=== PATIENT | female | born 1950 | race Caucasian/White ===

== ENCOUNTER → 2018-07-11 08:06 | Outpatient (CLI) | payer MEDICARE, OTHER, SELFPAY ==
--- NOTE | 2018-07-11 | DI.MG.S_ITS ---
BILATERAL DIGITAL SCREENING MAMMOGRAM 3D/2D WITH CAD: 07/11/2018 CLINICAL: Routine screening. Routine screening. Family history of breast cancer. Comparison is made to exams dated: 06/20/2017 mammogram, 06/13/2017 mammogram, and 06/04/2016 mammogram - [facility]. There are scattered fibroglandular elements in both breasts. Current study was also evaluated with a Computer Aided Detection (CAD) system. There are a grouped fine punctate calcifications in the left breast at 12 o'clock middle depth. No other significant masses, calcifications, or other findings are seen in either breast. IMPRESSION: INCOMPLETE: NEEDS ADDITIONAL IMAGING EVALUATION The grouped fine punctate calcifications in the left breast are indeterminate. Mediolateral, spot magnification, and additional views are recommended. This exam was interpreted at Station ID: [id number]. NOTE: For mammograms, a report in lay terms will be sent to the patient. Approximately 15% of breast malignancies will not be visualized mammographically. In the management of a palpable breast mass, a negative mammogram must not discourage biopsy of a clinically suspicious lesion. Electronically Signed By: Amador rico/abena:07/11/2018 15:27:46 letter sent: Additional Imaging Needed ACR BI-RADS Category 0: Incomplete 3340F
== END ==
PROVIDERS: Visit Provider Physician Assistant
DX: Z12.31 Encounter for screening mammogram for malignant neoplasm of breast (principal); Z80.3 Family history of malignant neoplasm of breast
CPT/HCPCS: 77063; 77067

== ENCOUNTER → 2018-08-06 13:02 | Outpatient (CLI) | payer MEDICARE, OTHER, SELFPAY ==
--- NOTE | 2018-08-06 | DI.MG.S_ITS ---
UNILATERAL LEFT DIGITAL DIAGNOSTIC MAMMOGRAM 3D/2D WITH ADDITIONAL VIEWS: 08/06/2018 CLINICAL: Additional evaluation requested from prior study. Comparison is made to exams dated: 07/11/2018 mammogram - [facility], 06/27/2017 stereotactic biopsy, and 06/20/2017 mammogram - [facility]. There are scattered fibroglandular elements in left breast. There are a grouped fine pleomorphic punctate calcifications in the left breast at 12 o'clock middle depth. These are increased in number of calcifications. No other significant masses or calcifications are seen in the breast. IMPRESSION: SUSPICIOUS OF MALIGNANCY The grouped fine pleomorphic punctate calcifications in the left breast are at a low suspicion for malignancy. A stereotactic biopsy is recommended. The findings were discussed with the patient at the conclusion of the study by Dr. Becerril. This exam was interpreted at Station ID: [id number]. NOTE: For mammograms, a report in lay terms will be sent to the patient. Approximately 15% of breast malignancies will not be visualized mammographically. In the management of a palpable breast mass, a negative mammogram must not discourage biopsy of a clinically suspicious lesion. Electronically Signed By: Amador rico/:08/06/2018 13:52:44 letter sent: Biopsy Required ACR BI-RADS Category 4a: Suspicious abnormality - low suspicion for malignancy 3344F
== END ==
PROVIDERS: PCP Physician Assistant; Visit Provider Physician Assistant
DX: R92.1 Mammographic calcification found on diagnostic imaging of breast (principal)
CPT/HCPCS: 77065; G0279

== ENCOUNTER 2018-10-29 07:37 | Day surgery (SDC) | payer MEDICARE, OTHER, SELFPAY ==
[2018-10-29] VITALS (8 sets, daily range): BP systolic 108–159; BP diastolic 49–87; PULSE 75–95; RESP 10–16; TEMP 36.3–36.7; O2SAT 95–100
--- NOTE | 2018-10-29 | PATH_ITS ---
[facility] Accession Number: [id number] . 01 Material submitted: . LEFT BREAST TISSUE . 01 Diagnosis: Left Breast Tissue, Excision: Focal atypical lobular hyperplasia associated with microcalcifications. Small focus of intraductal papilloma (<0.1 cm) adjacent to biopsy site. Microcalcifications and coarse stromal calcifications are also present in association with benign breast tissue. Background breast with fibrocystic change including usual ductal hyperplasia, adenosis, columnar cell change, cystic apocrine metaplasia, and microcysts. Negative for carcinoma in situ and malignancy. /11/02/2018 . 01 Electronically signed: . Susan Ch MD, Pathologist NPI- [id number] . 01 Gross description: . Received in formalin, labeled left breast tissue, short superior, long lateral, wire anterior. Specimen: Left partial mastectomy. Weight: 32 grams. Measurement: 9.3 cm anterior to posterior, 1.5 cm medial to lateral, and 2.0 cm-5.5 cm superior to inferior. Skin Ellipse: Absent. Wire: One wire penetrates at the superior lateral anterior side and exits the central inferolateral side. Margins: Oriented with short superior suture, long lateral suture, anterior localization wire, and inked as follows: posterior=black; anterior=purple; superior=blue; inferior=green; medial=yellow; lateral=orange. Sliced: Anterior to posterior into 27 slices. Lesions: No distinct nodules, masses, or lesions are identified. Other: The remaining cut surfaces consists of yellow lobulated adipose tissue and focally fibrous areas. A cavity (0.5 x 0.4 x 0.4 cm) is identified within slices #22-23 located 0.2 cm from the medial resection margin. Fixation Time: The specimen was placed in formalin on 10/29/2018 with no time given. An approximate total fixation time is calculated at 31 hours and 30 minutes. Sections: A1: Slice 1, anterior end of specimen, perpendicular. A2: Slice 2, bisected. A3: Slice 3, bisected. A4: Bisected. A5-A6: Slice 5, bisected and submitted superior to inferior. A7-A8: Slice 6, bisected and submitted superior to inferior, fibrous area in cassette A7. A9-A10: Slice 7, bisected and submitted superior to inferior. A11: Slice 8, bisected, focally firm area. A12: Slice 9, bisected, focally firm area. A13: Slice 10, bisected, focally firm area. A14: Slice 11, bisected. A15: Slice 12, trisected. A16: Slice 13, trisected, focally firm area. A17: Slice 14. A18: Slice 15, multiple pieces upon slicing. A19: Slice 16. A20: Slice 17. A21: Slice 18. A22: Slice 19, focally firm area. A23: Slice 20. A24: Slice 21. A25: Slice 22, anterior half of the cavity. A26: Slice 23, posterior half of the cavity. A27: Slice 24. A28: Slice 25. A29: Slice 26. A30: Slice 27, posterior end of specimen, perpendicular. Specimen is entirely submitted. Note: This specimen has been reviewed by Dr. Glendy Ch. ([id number]) /[facility] . 01 Microscopic: . Focal atypical lobular hyperplasia is present in 3 separate slices (slices 3, 6, and 22) with associated microcalcifications. The specimen is entirely submitted. . 01 Pathologist provided ICD-10: N60.92 . 01 CPT . 704005 Performed at: [address] [facility], [place], [place] [id number] MD Amador Lucas MD Phone: [phone]
--- NOTE | 2018-10-29 | DI.MG.S_ITS ---
SPECIMEN: 10/29/2018 CLINICAL: Left breast calcifications. Correlation is made to exams dated: 08/21/2018 specimen - [facility], 08/06/2018 mammogram, 10/29/2018 localization - [facility], 08/21/2018 stereotactic biopsy - [facility], and 07/11/2018 mammogram - [facility]. The specimen contains the targeted ribbon shaped biopsy clip and calcifications, as well as the localizing wire. IMPRESSION: SPECIMEN The specimen contains the targeted ribbon shaped biopsy clip and calcifications, as well as the localizing wire. This exam was interpreted at Station ID: [id number]. Chas Powers M.D. ecl/:10/29/2018 10:30:06
--- NOTE | 2018-10-29 09:13 | SUR.PREOP ---
pt returned from radiology via wheelchair. pt transferred self to use the restroom without any difficultly. pt then transferred herself back into bed. bed in lowest position and call light given to pt. pt at bedside.
--- NOTE | 2018-10-29 09:30 | DI.MG.S_ITS ---
DIGITAL MAMMOGRAPHY GUIDED WIRE LOCALIZATION LEFT BREAST WITH POST DIGITAL MAMMOGRAPHIC IMAGIN10/29/2018 CLINICAL: Left breast calcifications. Correlation is made to exams dated: 08/21/2018 stereotactic biopsy - [facility], 08/06/2018 mammogram, 07/11/2018 mammogram - [facility], 08/21/2018 specimen, 06/27/2017 stereotactic biopsy, and 06/27/2017 specimen - [facility]. A wire localization using digital mammography guidance was performed for the ribbon shaped marker clip and residual calcifications located in the left breast at 12 o'clock middle depth. The skin was prepped in the usual manner. 5 mL of 1% lidocaine was used for local anesthesia. The localization was approached from the craniocaudal aspect. A 5 cm Kopans hook wire was inserted adjacent to the marker under digital mammography guidance. A skin adhesive was applied to the access site. Post placement digital mammographic imaging was obtained and demonstrates the ribbon shaped marker clip and residual calcifications immediately anteriorly adjacent to the proximal stiffener of the Kopans wire, approximately 2.0 cm deep to the skin entry and 3.0 cm superficial to the tip of the wire hook. IMPRESSION: WIRE LOCALIZATION Wire localization for the marker clip in the left breast at 12 o'clock middle depth was successful with no apparent post procedure complications. This exam was interpreted at Station ID: [id number]. Chas Powers M.D. ecl/:10/31/2018 12:40:01
[2018-10-29] MEDS: CEFAZOLIN 2 GM/100 ML FROZ.PIGGY IV (09:40)
[2018-10-29] MEDS: LACTATED RINGERS 1,000 ML 42 ML IV (09:42)
[2018-10-29] MEDS: BUPIVACAINE 0.5% (PF) VIAL 20 ML INJ (10:14)
[2018-10-29] MEDS: LIDOCAINE 1% W/EPI INJ 20 ML INJ (10:15)
--- NOTE | 2018-10-29 10:41 | PM.PREOP ---
Pre-operative Note Interval Note History & Physical reviewed/Exam performed by Physician: Yes Changes to H&P: No
--- NOTE | 2018-10-29 10:42 | PM.OP.1 ---
Operative Date/Time/Diagnoses Date of procedure: 10/29/18 Time of procedure: 10:42 Pre-op diagnosis: Left Breast Intraductal Papilloma Post-op diagnosis: same Procedure & Clinicians Procedure: Left Breast Lumpectomy after Needle Localization Same procedure as scheduled: Yes Surgeon: Paulette Grande Click Yes if Unassisted: Yes Anesthesia Type: General (Dr. Storm) and Local Operative Notes Findings: Clip, wire, and calcifications all contained within specimen Closure Type: primary Specimen(s): other (Specimen was marked for orientation and submitted in formalin) Estimated Blood Loss (mL): 20 Procedure in detail: After obtaining informed consent, the patient brought to the operating room and placed in the supine position on the operating table. Following successful induction of general endotracheal anesthesia, appropriate padding of all bony prominences, and placement of appropriate monitors, the left breast is prepped and draped in the standard surgical fashion. A time-out was held per SCOAP protocol. Following infiltration with local anesthetic to create a field block, an incision was created at the superior aspect of the left areola. This was carried down through the skin and subcutaneous tissue. Dissection was carried out superiorly to the level of the localizing wire and slightly beyond. The entire wire and mass was liberated sharply using curved Riley scissors. This was marked for orientation and passed from the table. It was submitted to Radiology. The wound was then checked for hemostasis. It was irrigated with warm saline solution. The radiologist called back into the room and reported that the specimen contained all of the desired elements. The wound was then closed in 2 layers of Vicryl Monocryl sutures. Dermabond was applied to the skin. All sponge, needle, and instrument counts were correct at the conclusion of the case. The patient allowed to wake from anesthesia without difficulty and taken to the post anesthesia care unit in good condition. Complications: none Condition: stable Disposition: PACU Plan for aftercare: 1. Discharge to home 2. Follow up with me in my office in 2 weeks
[2018-10-29] MEDS: HYDROCODONE/ACET 5/325 TABLET 1 TAB PO (11:02)
--- NOTE | 2018-10-29 11:32 | SUR.PHASEII ---
pt arrived to phase II via stretcher. Pt sitting up and sipping ice water. Pt brought to bedside. Incision site observed to be c/d/i. breast binder in place. pt states pain is 3/10 at this time and tolerable. pt denies any nausea. bed in lowest position and call light given to pt.
== END 2018-10-29 11:52 | disposition home or self-care (01) ==
PROVIDERS: PCP Physician Assistant; Visit Provider Surgery
PROC: (CPT 19301; principal; 2018-10-29 09:30)
DX: N60.92 Unspecified benign mammary dysplasia of left breast (principal); E03.9 Hypothyroidism, unspecified
CPT/HCPCS: 19301; 19281; 76098; 88307; J0690; J1100; J2405; J2704; J3010

== ENCOUNTER → 2019-03-18 14:34 | Outpatient (CLI) | payer MEDICARE, OTHER, SELFPAY | PROVIDERS: PCP Physician Assistant; Visit Provider Student in an Organized Health Care Education/Training Program | DX: M85.851 Other specified disorders of bone density and structure, right thigh (principal); Z78.0 Asymptomatic menopausal state; R29.890 Loss of height; Z82.62 Family history of osteoporosis | CPT/HCPCS: 77080 ==

== ENCOUNTER → 2019-06-30 15:20 | Outpatient (ROUT) | payer MEDICARE, OTHER, SELFPAY ==
[2019-06-30 16:00] LABS: Blood Urea Nitrogen 17 mg/dL (7-17); Calcium 10.4 mg/dL (8.4-10.2); Carbon Dioxide 27 mmol/L (22-32); Chloride 102 mmol/L (98-107); Cholesterol 194 mg/dL (140-199); Glucose 96 mg/dL (80-110); HDL Cholesterol 54 mg/dL (40-60); HEMOLYSIS < 15 (0-50); LDL Cholesterol Calculated 118 mg/dL (<100); Potassium 4.8 mmol/L (3.4-5.1); Sodium 138 mmol/L (137-145); Triglycerides 112 mg/dL (35-150)
[2019-06-30 16:28] LABS: TSH w/ Reflex to FT4 1.83 uIU/mL (0.47-4.68)
== END ==
PROVIDERS: PCP Physician Assistant; Visit Provider Internal Medicine
DX: I10 Essential (primary) hypertension (principal); E78.2 Mixed hyperlipidemia; E03.9 Hypothyroidism, unspecified
CPT/HCPCS: 80048; 80061; 84443

== ENCOUNTER → 2019-07-13 10:56 | Outpatient (CLI) | payer MEDICARE, OTHER, SELFPAY ==
--- NOTE | 2019-07-13 | DI.MG.S_ITS ---
BILATERAL DIGITAL SCREENING MAMMOGRAM 3D/2D WITH CAD: 07/13/2019 CLINICAL: Routine screening. Family history of breast cancer. Comparison is made to exams dated: 08/06/2018 mammogram, 07/11/2018 mammogram - [facility], 06/20/2017 mammogram, and 06/13/2017 mammogram - [facility]. There are scattered fibroglandular elements in both breasts. Current study was also evaluated with a Computer Aided Detection (CAD) system. There are benign post operative findings in the left breast. No significant masses, calcifications, or other findings are seen in either breast. There has been no significant interval change. IMPRESSION: There is no mammographic evidence of malignancy. A 1 year screening mammogram is recommended. This exam was interpreted at Station ID: [id number]. NOTE: For mammograms, a report in lay terms will be sent to the patient. Approximately 15% of breast malignancies will not be visualized mammographically. In the management of a palpable breast mass, a negative mammogram must not discourage biopsy of a clinically suspicious lesion. Electronically Signed By: Amador rico/abena:07/17/2019 07:09:20 copy to: Micki Antony letter sent: Normal Exam ACR BI-RADS Category 2: Benign Finding(s) 3342F
== END ==
PROVIDERS: Family Provider Internal Medicine; PCP Internal Medicine; Visit Provider Physician Assistant
DX: Z12.31 Encounter for screening mammogram for malignant neoplasm of breast (principal); Z80.3 Family history of malignant neoplasm of breast
CPT/HCPCS: 77063; 77067

== ENCOUNTER → 2019-09-22 15:37 | Outpatient (ROUT) | payer MEDICARE, OTHER, SELFPAY ==
[2019-09-22 17:08] LABS: Cholesterol 193 mg/dL (140-199); HDL Cholesterol 59 mg/dL (40-60); LDL Cholesterol Calculated 117 mg/dL (<100); Triglycerides 85 mg/dL (35-150)
[2019-09-22 17:38] LABS: TSH w/ Reflex to FT4 1.15 uIU/mL (0.47-4.68)
== END ==
PROVIDERS: Family Provider Internal Medicine; PCP Internal Medicine; Visit Provider Internal Medicine
DX: E78.5 Hyperlipidemia, unspecified (principal); E03.9 Hypothyroidism, unspecified
CPT/HCPCS: 80061; 84443

== ENCOUNTER → 2021-06-23 13:14 | Outpatient (CLI) | payer MEDICARE, OTHER, SELFPAY ==
--- NOTE | 2021-06-23 | DI.MG.S_ITS ---
BILATERAL DIGITAL SCREENING MAMMOGRAM 3D/2D WITH CAD: 06/23/2021 CLINICAL: Routine screening. Family history of breast cancer. Comparison is made to exams dated: 07/13/2019 mammogram, 07/11/2018 mammogram - [facility], and 06/13/2017 mammogram - [facility]. There are scattered fibroglandular elements in both breasts. Current study was also evaluated with a Computer Aided Detection (CAD) system. There are benign calcifications in both breasts. There also are benign post operative findings in the left breast. No significant masses, calcifications, or other findings are seen in either breast. There has been no significant interval change. IMPRESSION: BENIGN There is no mammographic evidence of malignancy. A 1 year screening mammogram is recommended. This exam was interpreted at Station ID: [id number]. NOTE: For mammograms, a report in lay terms will be sent to the patient. Approximately 15% of breast malignancies will not be visualized mammographically. In the management of a palpable breast mass, a negative mammogram must not discourage biopsy of a clinically suspicious lesion. Electronically Signed By: Gian Nuno acr/penrad:06/23/2021 13:42:49 copy to: Micki Antony letter sent: Normal Exam ACR BI-RADS Category 2: Benign Finding(s) 3342F
== END ==
PROVIDERS: Family Provider Internal Medicine; PCP Internal Medicine; Referring Provider Internal Medicine; Visit Provider Internal Medicine
DX: Z12.31 Encounter for screening mammogram for malignant neoplasm of breast (principal); Z80.3 Family history of malignant neoplasm of breast
CPT/HCPCS: 77063; 77067

== ENCOUNTER → 2022-06-25 13:53 | Outpatient (CLI) | payer MEDICARE, OTHER, SELFPAY ==
--- NOTE | 2022-06-25 | DI.MG.S_ITS ---
BILATERAL DIGITAL SCREENING MAMMOGRAM 3D/2D WITH CAD: 06/25/2022 CLINICAL: Routine screening. Family history of breast cancer. Comparison is made to exams dated: 06/23/2021 mammogram, 07/13/2019 mammogram, and 07/11/2018 mammogram - [facility]. There are scattered areas of fibroglandular density in both breasts (category b / 25%-50% glandular tissue). Current study was also evaluated with a Computer Aided Detection (CAD) system. Redemonstration of previously described benign appearing calcifications in both breasts. The left breast has stable post-operative findings. There are grouped heterogeneous calcifications in the left breast at 1 o'clock posterior depth. These are more prominent, increased in number, and increased in number of calcifications. No other significant masses, calcifications, or other findings are seen in either breast. IMPRESSION: INCOMPLETE: NEEDS ADDITIONAL IMAGING EVALUATION The grouped heterogeneous calcifications in the left breast upper outer quadrant posterior depth have increased in size, number, and conspicuity and are indeterminate. Diagnostic mammogram for additional views to include mediolateral and spot magnification views is recommended. Based on the Tyrer Cuzick model (a risk assessment model) the patient's lifetime risk is 14.4% and her 10 year risk is 10.9%. According to the ACR, ACS, and NCCN guidelines, an annual breast MRI exam along with mammogram is recommended if the patient's lifetime risk is 20% or greater. This exam was interpreted at Station ID: [id number]. NOTE: For mammograms, a report in lay terms will be sent to the patient. Approximately 15% of breast malignancies will not be visualized mammographically. In the management of a palpable breast mass, a negative mammogram must not discourage biopsy of a clinically suspicious lesion. Electronically Signed By: Gautam Worley M.D. aty/:06/25/2022 16:24:53 copy to: Micki Antony letter sent: Additional Imaging Needed ACR BI-RADS Category 0: Incomplete 3340F
== END ==
PROVIDERS: PCP Internal Medicine; Referring Provider Internal Medicine; Visit Provider Internal Medicine
DX: Z12.31 Encounter for screening mammogram for malignant neoplasm of breast (principal); Z80.3 Family history of malignant neoplasm of breast
CPT/HCPCS: 77063; 77067

== ENCOUNTER → 2022-08-10 11:08 | Outpatient (CLI) | payer MEDICARE, OTHER, SELFPAY ==
--- NOTE | 2022-08-10 11:09 | DI.MG.S_ITS ---
UNILATERAL LEFT DIGITAL DIAGNOSTIC MAMMOGRAM 3D/2D WITH ADDITIONAL VIEWS: 08/10/2022 CLINICAL: Patient returns for magnification views of microcalcifications in the left breast. Comparison is made to exams dated: 06/25/2022 mammogram, 06/23/2021 mammogram, and 07/13/2019 mammogram - [facility]. There are scattered areas of fibroglandular density in the left breast (category b / 25%-50% glandular tissue). The left breast has post-operative findings of prior excisional biopsy. There are grouped and linear arranged, amorphous and heterogeneous calcifications in the left breast at 3 o'clock posterior depth. These are more prominent, and increased in number over prior studies. Morphology is similar to previously excised calcifications. No other significant masses or calcifications are seen in the breast. IMPRESSION: SUSPICIOUS OF MALIGNANCY The 3:00 grouped calcifications in the left breast are suspicious of malignancy. A stereotactic biopsy is recommended. Findings and recommendations were discussed with the patient by Dr. Joey Watts in person at time of exam. Based on the Tyrer Cuzick model (a risk assessment model) the patient's lifetime risk is 13.6% and her 10 year risk is 11.2%. According to the ACR, ACS, and NCCN guidelines, an annual breast MRI exam along with mammogram is recommended if the patient's lifetime risk is 20% or greater. This exam was interpreted at Station ID: [id number]. NOTE: For mammograms, a report in lay terms will be sent to the patient. Approximately 15% of breast malignancies will not be visualized mammographically. In the management of a palpable breast mass, a negative mammogram must not discourage biopsy of a clinically suspicious lesion. Electronically Signed By: Roopa marquez/:08/10/2022 12:09:10 copy to: Micki Antony letter sent: Biopsy Required ACR BI-RADS Category 4: Suspicious abnormality 3344F
== END ==
PROVIDERS: PCP Internal Medicine; Referring Provider Internal Medicine; Visit Provider Internal Medicine
DX: R92.8 Other abnormal and inconclusive findings on diagnostic imaging of breast (principal); M85.852 Other specified disorders of bone density and structure, left thigh; R92.1 Mammographic calcification found on diagnostic imaging of breast; Z13.820 Encounter for screening for osteoporosis; Z78.0 Asymptomatic menopausal state
CPT/HCPCS: 77065; 77080; G0279

== ENCOUNTER → 2023-03-22 10:10 | Outpatient (CLI) | payer MEDICARE, OTHER, SELFPAY ==
--- NOTE | 2023-03-22 10:14 | DI.MG.S_ITS ---
UNILATERAL LEFT DIGITAL DIAGNOSTIC MAMMOGRAM 3D/2D: 03/22/2023 CLINICAL: 6 month post biopsy left. Comparison is made to exams dated: 08/10/2022 mammogram, 06/23/2021 mammogram, 06/25/2022 mammogram - [facility], and 08/21/2022 stereotactic biopsy - [facility]. There are scattered areas of fibroglandular density in the left breast (category b / 25%-50% glandular tissue). There are stable benign post operative changes in the left breast. There also is a benign biopsy clip in the left breast. No significant masses, calcifications, or other findings are seen in the breast. IMPRESSION: BENIGN There is no mammographic evidence of malignancy. Return to annual mammogram screening schedule is recommended. Based on the Tyrer Cuzick model (a risk assessment model) the patient's lifetime risk is 18.7% and her 10 year risk is 15.6%. According to the ACR, ACS, and NCCN guidelines, an annual breast MRI exam along with mammogram is recommended if the patient's lifetime risk is 20% or greater. This exam was interpreted at Station ID: [id number]. NOTE: For mammograms, a report in lay terms will be sent to the patient. Approximately 15% of breast malignancies will not be visualized mammographically. In the management of a palpable breast mass, a negative mammogram must not discourage biopsy of a clinically suspicious lesion. Electronically Signed By: Joey fitzpatrick/abena:03/22/2023 13:31:50 copy to: Micki Antony letter sent: Normal Exam ACR BI-RADS Category 2: Benign Finding(s) 3342F
== END ==
PROVIDERS: PCP Internal Medicine; Referring Provider Internal Medicine; Visit Provider Internal Medicine
DX: R92.8 Other abnormal and inconclusive findings on diagnostic imaging of breast (principal)
CPT/HCPCS: 77065; G0279

== ENCOUNTER → 2023-06-26 11:57 | Outpatient (CLI) | payer MEDICARE, OTHER, SELFPAY ==
--- NOTE | 2023-06-26 11:58 | DI.MG.S_ITS ---
BILATERAL DIGITAL SCREENING MAMMOGRAM 3D/2D WITH CAD: 06/26/2023 CLINICAL: Routine screening. Family history of breast cancer. Comparison is made to exams dated: 06/25/2022 mammogram, 06/23/2021 mammogram, 07/13/2019 mammogram, 03/22/2023 mammogram, and 08/10/2022 mammogram - [facility]. There are scattered areas of fibroglandular density in both breasts (category b / 25%-50% glandular tissue). Current study was also evaluated with a Computer Aided Detection (CAD) system. There are benign calcifications in both breasts. There also are benign post operative findings and biopsy clips in the left breast. No significant masses, calcifications, or other findings are seen in either breast. There has been no significant interval change. IMPRESSION: BENIGN There is no mammographic evidence of malignancy. A 1 year screening mammogram is recommended. Based on the Tyrer Cuzick model (a risk assessment model) the patient's lifetime risk is 18.7% and her 10 year risk is 15.6%. According to the ACR, ACS, and NCCN guidelines, an annual breast MRI exam along with mammogram is recommended if the patient's lifetime risk is 20% or greater. This exam was interpreted at Station ID: [id number]. NOTE: For mammograms, a report in lay terms will be sent to the patient. Approximately 15% of breast malignancies will not be visualized mammographically. In the management of a palpable breast mass, a negative mammogram must not discourage biopsy of a clinically suspicious lesion. Electronically Signed By: Joey fitzpatrick/abena:06/27/2023 09:02:34 copy to: Micki Antony letter sent: Normal Exam ACR BI-RADS Category 2: Benign Finding(s) 3342F
== END ==
PROVIDERS: PCP Internal Medicine; Referring Provider Internal Medicine; Visit Provider Internal Medicine
DX: Z12.31 Encounter for screening mammogram for malignant neoplasm of breast (principal); Z80.3 Family history of malignant neoplasm of breast
CPT/HCPCS: 77063; 77067

== ENCOUNTER → 2023-08-09 16:59 | Outpatient (CLI) | payer MEDICARE, OTHER, SELFPAY ==
--- NOTE | 2023-08-09 | DI.MRI.S_ITS ---
PROCEDURE: MR KNEE LT WO/W CON INDICATIONS: Localized swelling, mass and lump, left lower limb TECHNIQUE: Noncontrast sagittal PD fast spin echo and T2 fast spin echo with fat saturation, sagittal 3-D FLASH with fat saturation; coronal T1 spin echo and PD fast spin echo with fat saturation, and axial T1 spin echo and PD fast spin echo with fat saturation through the knee. Post-contrast axial, coronal, and sagittal T1 spin echo with fat saturation through the knee. COMPARISON: [facility] [place], CR, XR KNEE 4+ VIEWS LEFT, 07/03/2023, 14:07. FINDINGS: Image quality: Excellent. Menisci: There is horizontal tear of the body and posterior horn of the medial meniscus involving the anterior articular surface. The lateral meniscus demonstrates normal morphology and internal signal. The meniscal root ligaments appear intact. Cruciate ligaments: The anterior and posterior cruciate ligaments appear intact. Medial structures: The medial collateral ligament appears intact. The semimembranosus tendon insertions and meniscocapsular junction appear intact. Visualized portions of the pes anserinus tendons appear normal. No abnormal bursal fluid. Lateral structures: The lateral collateral ligament, long and short heads of the biceps femoris tendon appear intact. The popliteus tendon appears normal. Iliotibial band appears normal. Anterior structures: The quadriceps and patellar tendons appear intact. There is low-grade quadriceps tendinitis and patellar tendinitis. Patellar alignment is normal. No femoral trochlear dysplasia or ventral trochlear prominence. No edema in the infrapatellar fat pad. There is small amount of fluid in the prepatellar bursa consistent with mild bursitis. Bones and cartilage: No suspicious osseous enhancement. Shul-[id number] tricompartmental cartilage thinning and fibrillation. Joint space: There is small knee joint effusion. No Delgado's cyst. Normal appearing synovial plicae are incidentally noted. No suspicious soft tissue enhancement. IMPRESSION: 1. Horizontal tear of the posterior horn and body of the medial meniscus. 2. Low-grade quadriceps tendinitis and patellar tendinitis. 3. Yswm-ck-evawymji tricompartmental cartilage thinning and fibrillation. 4. Small prepatellar bursal fluid consistent with mild bursitis. 5. No mass is present in the area of interest. Dictated by: Dania Alcantar M.D. on 08/12/2023 at 9:46 Approved by: Dania Alcantar M.D. on 08/12/2023 at 11:23
== END ==
PROVIDERS: PCP Internal Medicine; Referring Provider Orthopaedic Surgery Foot and Ankle Surgery; Visit Provider Orthopaedic Surgery Foot and Ankle Surgery
DX: S83.242A Other tear of medial meniscus, current injury, left knee, initial encounter (principal); R22.42 Localized swelling, mass and lump, left lower limb; M76.52 Patellar tendinitis, left knee
CPT/HCPCS: 73723; A9579

== ENCOUNTER → 2024-07-06 09:55 | Outpatient (CLI) | payer MEDICARE, OTHER, SELFPAY ==
--- NOTE | 2024-07-06 09:56 | DI.MG.S_ITS ---
BILATERAL DIGITAL SCREENING MAMMOGRAM 3D/2D WITH CAD: 07/06/2024 CLINICAL: Routine screening. Family history of breast cancer. Comparison is made to exams dated: 06/26/2023 mammogram, 03/22/2023 mammogram, 08/10/2022 mammogram, 06/25/2022 mammogram, and 06/23/2021 mammogram - [facility]. There are scattered areas of fibroglandular density (category b / 25%-50% glandular tissue). Current study was also evaluated with a Computer Aided Detection (CAD) system. There are benign calcifications in both breasts. There also are benign post operative findings and biopsy clips in the left breast. No significant masses, calcifications, or other findings are seen in either breast. There has been no significant interval change. IMPRESSION: BENIGN There is no mammographic evidence of malignancy. A 1 year screening mammogram is recommended. Based on the Tyrer Cuzick model (a risk assessment model) the patient's lifetime risk is 16.5% and her 10 year risk is 16.5%. According to the ACR, ACS, and NCCN guidelines, an annual breast MRI exam along with mammogram is recommended if the patient's lifetime risk is 20% or greater. This exam was interpreted at Station ID: [id number]. NOTE: For mammograms, a report in lay terms will be sent to the patient. Approximately 15% of breast malignancies will not be visualized mammographically. In the management of a palpable breast mass, a negative mammogram must not discourage biopsy of a clinically suspicious lesion. Electronically Signed By: Alexi schultz/abena:07/07/2024 14:01:47 copy to: Micki Antony letter sent: Normal Exam ACR BI-RADS Category 2: Benign
== END ==
LOC: MAMMO 09:55
PROVIDERS: PCP Internal Medicine; Referring Provider Internal Medicine; Visit Provider Internal Medicine
DX: Z12.31 Encounter for screening mammogram for malignant neoplasm of breast (principal); Z80.3 Family history of malignant neoplasm of breast
CPT/HCPCS: 77063; 77067

== ENCOUNTER → 2025-07-16 16:39 | Outpatient (CLI) | payer MEDICARE, OTHER, SELFPAY ==
--- NOTE | 2025-07-16 16:41 | DI.MG.S_ITS ---
MM screening mammo BI: 07/16/2025. BI-RADS: 2 CLINICAL: 75-year old female for bilateral screening mammogram. Tyrer-Cuzick lifetime risk of 7.2%. Current reported family history of breast cancer: mother and sister. The patient had a prior left breast biopsy. PRIOR EXAMS 07/06/2024, 06/26/2023, 03/22/2023, 08/21/2022. MAMMOGRAPHY TECHNIQUE: 2D and 3D (tomosynthesis) digital mammographic views obtained, with additional images as needed for full coverage. Current study was also evaluated with a Computer Aided Detection (CAD) system. DENSITY B. There are scattered areas of fibroglandular density. MAMMOGRAPHY FINDINGS Right: No suspicious mass, asymmetry, microcalcification, or other abnormality seen. Left: Biopsy marker present on the left. Benign-appearing post-surgical changes noted on the left. There are no suspicious masses, calcifications, or other findings in the breast. IMPRESSION: Right * No evidence of malignancy. Left * No evidence of malignancy with benign findings. RECOMMENDATIONS Bilateral * Annual screening mammography. OVERALL ASSESSMENT CATEGORY BI-RADS-2: Benign. The [employer] recommends annual screening mammography beginning at age 40 for women with average risk of breast cancer. ELECTRONICALLY SIGNED: Tarsha Vyas M.D. on 07/19/2025 at 01:01:11 PM PT Interpreting Station ID: [id number]
== END ==
PROVIDERS: PCP Nurse Practitioner Family; Referring Provider Nurse Practitioner Family; Visit Provider Nurse Practitioner Family
DX: Z12.31 Encounter for screening mammogram for malignant neoplasm of breast (principal); Z80.3 Family history of malignant neoplasm of breast
CPT/HCPCS: 77063; 77067